=== PATIENT | female | born 1975 | race Caucasian/White ===

== ENCOUNTER 2023-11-30 16:23 | Outpatient (OUT) | payer OTHER, SELFPAY ==
--- NOTE | 2023-11-30 16:26 | MM_ITS ---
Patient Name: BETO BEJARANO MR#: [id number] : 1975 Exam Date: 11/30/2023 Ordering Doctor: DR Salvador Heath . RADIOLOGY REPORT PROCEDURE: MM TOMOSYNTHESIS SCREENING BI COMPARISON: MG MAMM SCREEN 3D LILY CAD, 08/06/2021. MG MAMM LILY DIAG FU, 01/26/2018. MG MAMM LILY DIAG W CAD, 01/24/2018. INDICATIONS: screening Calculator Name NCI Breast Cancer Risk Assessment Tool 5 Year Breast Cancer Risk 0.90% Lifetime Breast Cancer Risk 10.50% Personal Breast Cancer No Personal Ovarian Cancer No Treatments None Family Cancers Grandmother-maternal with breast cancer at age ~55. LOCATION: [facility] BREAST COMPOSITION: Extremely dense, which lowers the sensitivity of mammography. FINDINGS: DIAGNOSTIC CATEGORY 1--NEGATIVE. RIGHT BREAST: No significant suspicious finding. No significant change has occurred. LEFT BREAST: No significant suspicious finding. No significant change has occurred. RECOMMENDATIONS: ROUTINE MAMMOGRAM AND CLINICAL EVALUATION IN 12 MONTHS. PLEASE NOTE: A NORMAL MAMMOGRAM DOES NOT EXCLUDE THE POSSIBILITY OF BREAST CANCER. A CLINICALLY SUSPICIOUS PALPABLE LUMP SHOULD BE BIOPSIED. Dictated by: Pako Roe M.D. on 12/01/2023 at 13:30 Approved by: Pako Roe M.D. on 12/01/2023 at 14:13
== END 2023-11-30 16:24 | disposition home or self-care (01) ==
LOC: MAMMO 16:23
PROVIDERS: PCP Obstetrics & Gynecology; Visit Provider Obstetrics & Gynecology
DX: Z12.31 Encounter for screening mammogram for malignant neoplasm of breast (principal); Z80.3 Family history of malignant neoplasm of breast
CPT/HCPCS: 77063; 77067

== ENCOUNTER 2025-05-27 16:53 | Outpatient (OUT) | payer OTHER, SELFPAY ==
--- NOTE | 2025-05-27 16:57 | MM_ITS ---
Patient Name: BETO BEJARANO MR#: [id number] : 1975 Exam Date: 05/27/2025 Ordering Doctor: DR REBECCA RATLIFF . RADIOLOGY REPORT PROCEDURE: MM TOMOSYNTHESIS SCREENING BI COMPARISON: MM TOMOSYNTHESIS SCREENING BI, 11/30/2023. MG MAMM SCREEN 3D LILY CAD, 08/06/2021. MG MAMM LLIY DIAG FU, 01/26/2018. MG MAMM LILY DIAG W CAD, 01/24/2018. INDICATIONS: Screening for malignant neoplasm Calculator Name NCI Breast Cancer Risk Assessment Tool 5 Year Breast Cancer Risk 1.00% Lifetime Breast Cancer Risk 10.30% Personal Breast Cancer No Personal Ovarian Cancer No Treatments None Family Cancers Grandmother-maternal with breast cancer at age ~55. LOCATION: [facility] BREAST COMPOSITION: The breasts are extremely dense, which lowers the sensitivity of mammography. FINDINGS: RIGHT BREAST: No significant suspicious finding. Benign-appearing calcifications are present. LEFT BREAST: No significant suspicious finding. Benign-appearing calcifications are present. DIAGNOSTIC CATEGORY 2--BENIGN FINDING. NO CHANGE FROM COMPARISON. RECOMMENDATIONS: ROUTINE MAMMOGRAM AND CLINICAL EVALUATION IN 12 MONTHS. PLEASE NOTE: A NORMAL MAMMOGRAM DOES NOT EXCLUDE THE POSSIBILITY OF BREAST CANCER. A CLINICALLY SUSPICIOUS PALPABLE LUMP SHOULD BE BIOPSIED. Dictated by: Edenilson Diehl MD on 05/27/2025 at 17:28 Approved by: Edenilson Diehl MD on 05/27/2025 at 17:30
--- OUTSIDE RECORDS SUMMARY | 2025-05-27 17:02 | XMS_ITS | CCD ---
Author Organization [facility] Care Team Providers Care Whiskey Regauger Name Role Phone WEST, DR TYRONE Nguyen Consulting Unavailable [facility]UL[facility] Primary Care Unavailable EVY, DR FERNANDEZ Attending Unavailable EVY, DR FERNANDEZ Admitting Unavailable EVY, DR FERNANDEZ Consulting Unavailable Problems Problem Classification Problem Date Documented Da te Episodic/Chronic Other screening for suspected conditions (not mental disorders or infectious disease) (4 sources) Encounter for screening mammogram for malignant neoplasm of breast; Translations: [ENC SCR MAMMO MALIG NEOPLASM BREAST] Onset: 08-06-2021 Episodic Residual codes; unclassified (1 source) Family history of malignant neoplasm of breast; Translations: [FAMILY HX MALIG NEOPLASM OF BREAST] Onset: 08-12-2021 Episodic Results Test Name Value Interpretation Reference Range Facil ity MG MAMM SCREEN 3D LILY CADon 08-06-2021 MG MAMM SCREEN 3D LILY CAD Patient: BETO BEJARANO. Exam Date: 08/06/2021 : 1975 Gender:F Ordering : DR REBECCA RATLIFF . Admission #: [id number] Family : Order #: [id number] CLICK HERE TO VIEW EXAM RADIOLOGY REPORT PROCEDURE: MAMMOGRAM SCREENING 3D BILATERAL CAD COMPARISON: US BREAST LILY LIMITED, 01/26/2018. MG MAMM LILY DIAG W CAD, 01/24/2018. MG MAMM LILY DIAG FU, 01/26/2018. INDICATIONS: Screening mammography Calculator Name NCI Breast Cancer Risk Assessment Tool 5 Year Breast Cancer Risk 0.90% Lifetime Breast Cancer Risk 10.70% Personal Breast Cancer No Personal Ovarian Cancer No Treatments None Family Cancers Grandmother-maternal with breast cancer at age 55. LOCATION: [facility] BREAST COMPOSITION: Extremely dense, which lowers the sensitivity of mammography. FINDINGS: DIAGNOSTIC CATEGORY 2--BENIGN FINDING NO CHANGE FROM COMPARISON ASSESSMENT. Scattered benign-appearing nodules are present. Scattered benign-appearing calcifications are present. Scattered benign-appearing lymph nodes are present. RIGHT BREAST: No significant suspicious finding. LEFT BREAST: No significant suspicious finding. 3.4 cm left upper outer mid breast mass partially obscured, stable from the prior exam , previously determined by ultrasound to be a cyst. RECOMMENDATIONS: ROUTINE MAMMOGRAM AND CLINICAL EVALUATION IN 12 MONTHS. PLEASE NOTE: A NORMAL MAMMOGRAM DOES NOT EXCLUDE THE POSSIBILITY OF BREAST CANCER. A CLINICALLY SUSPICIOUS PALPABLE LUMP SHOULD BE BIOPSIED. Dictated by: Tyrone Lacey MD on 08/06/2021 at 09:34 Approved by: Tyrone Lacey MD on 08/06/2021 at 10:12 Normal [facility] Encounters Encounter Date Encounter Type Care Provider Facility Start: 08-06-2021 End: 08-07-[address] TYRONE LACEY Facility: Payers Date Payer Category Payer Unknown [id number] 1957 Unknown [id number] Summary Purpose Family History No Family History Records Found Advance Directives No Advanced Directives Records Found Additional Source Comments INFORMATION SOURCE (unrecogn ized section and content) DATE CREATED AUTHOR 08/13/[address] [facility] FOR RECORDS PERTAINING TO PATIENTS WHO ARE OR HAVE BEEN ENROLLED IN A CHEMICAL DEPENDENCY/SUBSTANCEABUSE PROGRAM, SOME INFORMATION MAY BE OMITTED. This clinical summary was aggregated from multiple sources. Caution should be exercised in using it in the provision of clinical care. This summary normalizes information from multiple sources, and as a consequence, information in this document may materially change the coding, format and clinical context of patient data. In addition, data may be omitted in some cases. CLINICAL DECISIONS SHOULD BE BASED ON THE PRIMARY CLINICAL RECORDS. [facility] [employer] provides no warranty or guarantee of the accuracy or completeness of information in this document.
== END 2025-05-27 16:54 | disposition home or self-care (01) ==
PROVIDERS: PCP Obstetrics & Gynecology; Visit Provider Obstetrics & Gynecology
DX: Z12.31 Encounter for screening mammogram for malignant neoplasm of breast (principal); Z80.3 Family history of malignant neoplasm of breast
CPT/HCPCS: 77063; 77067